=== PATIENT | female | born 1970 | race Caucasian/White ===

== ENCOUNTER 2023-04-14 09:07 | Day surgery (SDC) | payer OTHER ==
[~2023-04-14] VITALS: Ht 152.4 cm; Wt 83.5 kg
[2023-04-14] MEDS ORDERED: fentaNYL citrate 0.05 MG/ML VIAL ONE (10:21)
[2023-04-14] MEDS ORDERED: LIDOCAINE 2% 100 MG/5 ML UJET TP ONE (10:21)
[2023-04-14] MEDS ORDERED: fentaNYL citrate 0.05 MG/ML VIAL IVP ONE (13:00)
== END 2023-04-14 12:08 | disposition home or self-care (01) ==
LOC: MDS 09:07 → MMU 09:08 → MDS 12:08
PROVIDERS: ATTEND Internal Medicine Gastroenterology
DX: Z12.11 Encounter for screening for malignant neoplasm of colon (principal); E78.00 Pure hypercholesterolemia, unspecified; E66.9 Obesity, unspecified; F17.210 Nicotine dependence, cigarettes, uncomplicated; Z68.35 Body mass index [BMI] 35.0-35.9, adult; Z79.899 Other long term (current) drug therapy
CPT/HCPCS: 45378; 82948; J3010